=== PATIENT | female | born 1980 | race Caucasian/White ===

== ENCOUNTER 2019-09-06 15:55 | Emergency (ER) | payer OTHER, SELFPAY ==
[2019-09-06 16:11] VITALS: BP 153/97; PULSE 104; RESP 20; TEMP 37.2; O2SAT 98; BMI 44.9
--- NOTE | 2019-09-06 16:11 | ED_ITS ---
Entered by Nitza Aleman, acting as scribe for oJsie Casiano HPI - Female Genitourinary General: Chief complaint: Vaginal Bleeding Stated complaint: bleeding 10wks preg Time Seen by Provider: 09/06/19 16:06 Source: patient Mode of arrival: wheelchair Limitations: no limitations History of Present Illness: HPI Narrative: 38 yo Female presents to ED with complaint of vaginal bleeding. Pt states she is 10 weeks . Pt states that this is her 6th . Pt states she has 5 healthy children. Pt states that she had some spotting that started on Friday. Pt states that today she was spotting as well but it was just when she went to the bathroom. Pt states that she is having cramping but she has had period cramps worse. Pt states that she had an ultrasound in the ED recently that confirmed her and gave an estimated due date of April 10. Pt states that today when she got home, she got out of the car and felt a gush of blood. Pt states that she had another gush of blood when she arrived to the ED. MD elicited complaint: vaginal bleeding Onset (ago): day(s) (2) Severity scale (1-10): 4 Quality of pain: cramping Consistency: progressively worsening Vaginal discharge: none Vaginal bleeding: moderate Exacerbating factors: none Relieving factors: none Associated symptoms: Reports abdominal pain and vaginal bleeding; Deny headache(s) or syncope Patient : Yes Related Data: : 6 Para: 5 Review of Systems General: Reports: other (negative unless marked) Const: Denies: fever, chills, body aches, fatigue, malaise or diaphoresis Eyes: Denies: change in vision or blurry vision ENMT: Denies: throat pain, painful swallowing, hoarseness, ear pain, ear discharge, Change in hearing or nasal discharge Card: Denies: chest pain, palpitations, irregular heart rhythm, syncope, pre- syncope, shortness of breath on exertion or shortness of breath when lying down Resp: Denies: shortness of breath, productive cough, non-productive cough, wheezing, coughing up blood or chest congestion GI: Reports: abdominal pain : Reports: vaginal bleeding; Denies: flank pain, painful urination, urinary frequency, urinary urgency, decreased urine ouput, urinary incontinence or blood in urine Musc: Denies: neck pain, back pain, extremity pain, extremity swelling, joint pain, joint swelling, joint warmth or joint stiffness Skin/Breast: Denies: rash, skin tenderness or yellow skin Neuro: Denies: headache, numbness in extremities, weakness in extremities, changes in sensation, lack of coordination, difficulty walking, dizziness, vertigo or confusion Endo: Denies: excessive thirst, tired all the time, cold intolerance, excessive sweating, flushing or hot flashes Arnel/Lymph: Denies: easy bruising, easy bleeding, petechiae or enlarged lymph nodes All/Imm: Denies: hives, throat swelling, tongue swelling, facial swelling or acute wheezing PFSH ED PFSH: Statuses (acute, chronic, etc) shown below reflect problem list status as previously entered and may not be historically accurate Medical History (Updated 09/06/19 @ 19:27 by Josie Casiano) Depression (Acute) Diabetes (Acute) Social History (Updated 09/06/19 @ 16:32 by Nitza Aleman) Smoking and tobacco status: never smoked Female Reproductive History: : 6 Physical Exam Const: COMMON NORMALS: no apparent distress, oriented x3, no limitations, healthy appearing and well nourished EXAM LIMITATIONS: no altered mental status GENERAL APPEARANCE: cooperative, well kempt and well developed ORIENTATION/CONSCIOUSNESS: Yes awake HENMT: COMMON NORMALS: normocephalic, head/scalp atraumatic, hearing grossly normal bilaterally, external ears normal, EAC's normal, external nose normal and moist oral mucous membranes HEAD & SCALP: normal to inspection, normocephalic and atraumatic FACE & SINUS: normal facial exam and face symmetric NOSE: external nose normal and nares normal EXTERNAL EAR: Yes external ears normal EXTERNAL AUDITORY CANAL: EAC's normal MOUTH: oral and palatal mucosa normal and tongue normal Eye: COMMON NORMALS: PERRL, EOMs intact bilaterally, conjunctivae normal and no scleral icterus GENERAL EYE: normal appearance of both eyes and normal light reflex CONJUNCTIVA: Yes conjunctivae normal SCLERA: sclerae normal CORNEA: Yes corneas normal PUPIL: Yes PERRL DIRECT OPHTHALMOSCOPY: Yes normal light reflex Neck/C-Spine: COMMON NORMALS: full ROM, no lymphadenopathy, supple, no meninge al signs and no JVD GENERAL: Yes normal visual inspection and Yes trachea midline CERVICAL SPINE: Yes cervical ROM normal Chest: COMMONS NORMALS: inspection of chest normal and palpation of chest normal Resp: COMMON NORMALS: normal respiratory effort, no retractions, no use of accessory muscles and clear to auscultation bilaterally EFFORT & INSPECTION: Yes able to speak in complete sentences AUSCULTATION: clear to auscultation bilaterally Cardio: COMMON NORMALS: no JVD, regular rate, regular rhythm, S1 normal heart sound, S2 normal heart sound, no gallops, no clicks, no murmurs and no rub JUGULAR VENOUS DISTENTION: no JVD RATE: regular rate RHYTHM: regular rhythm HEART SOUNDS: S1 normal and S2 normal GI: COMMON NORMALS: soft to palpation, non-tender, no hepatosplenomegaly and no masses INSPECTION: Yes normal to inspection PALPATION: Yes soft and Yes no hepatosplenomegaly : COMMON NORMALS: Yes no CVA tenderness BLADDER/KIDNEY EXAM: Yes no CVA tenderness SPECULUM EXAM - VAGINA: Yes vaginal bleeding and Yes tissue present in vagina SPECULUM EXAM - CERVIX: Yes cervical os open, Yes tissue present in the cervical os and Yes cervical bleeding BIMANUAL EXAM - VAGINA & UTERUS: Yes normal vaginal palpation and Yes cervical motion tenderness BIMANUAL EXAM - ADNEXA, OTHER: Yes normal adnexae and Yes other (Tissue removed from the office with ringed forceps) OB/EXTERNAL & SPECULUM: tissue present in vagina, cervical os open and vaginal bleeding Back/Pelvis: COMMON NORMALS: no CVA tenderness, thoracic and lumbar spine normal to inspection, no thoracic nor lumbar tenderness and thoraco-lumbar ROM normal Extremity: COMMON NORMALS: normal to inspection, full ROM, normal capillary refill, no joint enlargement, no clubbing, cyanosis or edema and no calf tenderness Neuro: COMMON NORMALS: oriented x3, CN's II-XII intact bilaterally, moves all extremities, no focal motor deficits and no sensory deficits noted MENINGEAL SIGNS: Yes no meningeal signs Psych: COMMON NORMALS: mental status grossly normal, thought process normal, cooperative, affect normal, speech normal and activity/motor behavior normal APPEARANCE: Yes well kempt SPEECH: Yes normal speech THOUGHT PROCESS: normal thought process Skin: COMMON NORMALS: no rashes or lesions noted, skin turgor normal, no jaundice, no petechiae and no mottling GENERAL SKIN EXAM: no rashes or lesions noted and turgor normal Course Vital Signs: Vital signs: Vital Signs Temperature 99.0 F 09/06/19 16:11 Pulse Rate 110 H 09/06/19 20:35 Respiratory Rate 16 09/06/19 20:35 Blood Pressure 146/96 09/06/19 20:35 Pulse Oximetry 96 09/06/19 20:35 MDM - Female MDM Narrative: Medical decision making narrative: On pelvic exam the patient had tissue in the cervical loss. It was removed with a tenaculum. The bleeding improved greatly. I reviewed the case in full with Dr. Zafar waste transportation technician for [employer] and he states the patient will likely have improved pain and then as well will have less bleeding. He agrees to see the patient in his office for recheck. I reviewed this with the patient she is in agreement. She will follow-up as directed return here if needed. Lab Data: Attestation: I reviewed the patient's lab results. Labs: Lab Results 09/06/19 09/06/19 09/06/19 Range/Units 16:37 16:37 16:37 WBC 10.2 H (4.0-10.0) 10^3/ uL RBC 4.42 (4.1-5.3) 10^6/u L Hgb 13.3 (11.5-15.3) g/dL Hct 40.1 (37.0-47.0) % MCV 90.7 (81-99) fL MCH 30.1 (28.0-34.0) pg MCHC 33.2 (30.0-36.0) g/dL RDW 13.2 (12.1-15.1) % Plt Count 242 (130-400) 10^3/c mm MPV 10.4 (7.4-10.4) fL Neut % (Auto) 69.9 % Lymph % (Auto) 21.6 % [place] % (Auto) 6.7 % Eos % (Auto) 1.2 % Baso % (Auto) 0.3 % Neut # (Auto) 7.1 (1.8-7.7) 10^3/u L Lymph # (Auto) 2.2 (0.8-4.8) 10^3/u L [place] # (Auto) 0.7 (0.2-0.9) 10^3/u L Eos # (Auto) 0.1 (0.0-0.8) 10^3/u L Baso # (Auto) 0.0 (0.0-0.1) 10^3/u L Nucleated RBC % (a uto) 0 % Nucleated RBCs # 0.0 /100WBC Sodium 137 (136-145) mmol/L Potassium 3.5 (3.5-5.1) mmol/L Chloride 103 (98-107) mmol/L Carbon Dioxide 23 (22-29) mmol/L Anion Gap 14.5 (5-19) BUN 10 (6-20) mg/dL Creatinine 0.6 (0.5-0.9) mg/dL GFR Calculation 111.9 (90-130) mL/min Glucose 97 (74-109) mg/dL Calcium 9.5 (8.6-10.0) mg/Dl Total Bilirubin 0.4 (0.15-1.2) mg/dL AST 17 (0-32) U/L ALT 21 (0-33) U/L Alkaline Phosphata se 83 (35-105) IU/L Total Protein 7.2 (6.6-8.7) g/dL Albumin 4.1 (3.5-5.2) g/dL Globulin 3.1 (1.3-4.6) g/dL Ser , Darío i-Qnt 5844.00 mIU/mL Blood Type A Positive Imaging Data: US OB: Radiologist's impression: [address] [address] Ultrasound Report Signed Patient: Kathleen Holman#: [id number] : 1980Acct:[id number] Age/Sex: 38 / FADM Date: 09/06/19 Loc: ER Attending Dr: Ordering Physician: Josie Casiano DO Date of Service: 09/06/19 Procedure(s): US OB lmt with transvaginal Accession Number(s): [id number] cc: Josie Casiano DO~ PROCEDURE INFORMATION: Exam: US , Limited Exam date and time: 09/06/2019 4:58 PM Age: 38 years old Clinical indication: Lmp or gestational age (in weeks): 9 weeks 5 days; Other: Bleeding 9 weeks ; Patient HX: Hcg on 08/15/19 62098. Hcg today 09/06/2019 5844; Additional info: Pain TECHNIQUE: Imaging protocol: Real-time ultrasound of the maternal uterus with image documentation. Exam focused on the clinical indication. COMPARISON: [place] [id number] 06/03/2017 11:11 AM FINDINGS: GESTATION: Gestation: No IUP is identified. MATERNAL: Cervix: There is an echogenic area within the cervix measuring approximately 2.8 x 1.5 x 1.6 cm most likely representing some blood in the cervical canal. Right adnexa: Right ovary: Not visualized Left adnexa: Left ovary: Unremarkable US/US OB lmt with transvaginal IMPRESSION: No IUP is identified. Correlation with quantitative beta HCG is suggested. Dictated By: Dario Ramirez 09/06/191839 Signed By: Dario Ramirez 09/06/191841 Discharge Plan Discharge Patient Disposition: Home, Self-Care Clinical Impression: Incomplete Condition: Stable Prescriptions: [place] 5-325 mg tablet 1 tab PO Q6H PRN (Reason: pain) Qty: 10 RF: 0 ibuprofen 800 mg tablet 800 mg PO Q8H PRN (Reason: pain) Qty: 20 RF: 0 Zofran 4 mg tablet 4 mg PO Q6H PRN (Reason: nausea and vomiting) Qty: 20 RF: 0 No Action Levemir U-100 Insulin 100 unit/mL Solution 20 unit SUBCUT BID RF: 0 400 mcg Tablet,Chewable 400 mcg PO RF: 0 albuterol sulfate 90 mcg/actuation Hfa Aerosol Inhaler 1 inh INHALATION QID PRN (Reason: Shortness Of Breath) RF: 0 Flonase Allergy Relief 50 mcg/actuation [place],Suspension 1 spray INTRANASAL DAILY RF: 0 Discharge Orders: Discharge Order (Routine); Ordered 09/06/19 Ordered By: Josie Casiano Referrals: Lobo Zafar MD [Physician] - 1-3 days Dina Deluca MD [Primary Care Provider] - Discharge Diet: Advance as tolerated Discharge Activity: Increase activity as tolerated Patient Instructions: Spontaneous Miscarriage (ED) Activity Restrictions/Additional Instructions: Please return to the ER immediately for any of the signs or symptoms listed on your discharge instruction sheets, worsening/changing of your symptoms, you are not getting better as quickly as expected, or for ANY other cause or concerns. Be certain to follow-up with Dr. Zafar or with Dr. Deluca this week for recheck. Return to the ER for heavier bleeding, dizziness, lightheadedness, fever, or for any other cause for concern. Discharge Date/Time: 09/06/19 20:36 Coding Level of Care Code ED Tire Builder for Chg Fwd Exam Problem Focused The documentation recorded by the Love clemons Carmen, accurately reflects the service I personally performed and the decisions made by Stephenie joseph Eli N Sep 06, 2019 15:55
[2019-09-06 16:57] LABS: Basophils % 0.3 %; Eosinophils # 0.1 10^3/uL (0.0-0.8); Eosinophils % 1.2 %; Hematocrit 40.1 % (37.0-47.0); Hemoglobin 13.3 g/dL (11.5-15.3); Lymphocytes # 2.2 10^3/uL (0.8-4.8); Lymphocytes % 21.6 %; Mean Corpuscular HGB Conc 33.2 g/dL (30.0-36.0); Mean Corpuscular Hemoglobin 30.1 pg (28.0-34.0); Mean Corpuscular Volume 90.7 fL (81-99); Mean Platelet Volume 10.4 fL (7.4-10.4); Monocytes # 0.7 10^3/uL (0.2-0.9); Monocytes % 6.7 %; Neutrophils # 7.1 10^3/uL (1.8-7.7); Neutrophils % 69.9 %; Nucleated Red Blood Cells % 0 %; Platelet Count 242 10^3/cmm (130-400); Red Blood Count 4.42 10^6/uL (4.1-5.3); Red Cell Distribution Width 13.2 % (12.1-15.1); White Blood Count 10.2 10^3/uL (4.0-10.0)
[2019-09-06 17:16] LABS: Alanine Aminotransferase 21 U/L (0-33); Albumin Level 4.1 g/dL (3.5-5.2); Alkaline Phosphatase 83 IU/L (35-105); Anion Gap 14.5 (5-19); Aspartate Amino Transferase 17 U/L (0-32); Blood Urea Nitrogen 10 mg/dL (6-20); Calcium 9.5 mg/Dl (8.6-10.0); Carbon Dioxide 23 mmol/L (22-29); Chloride 103 mmol/L (98-107); Globulin 3.1 g/dL (1.3-4.6); Glomerular Filtration Rate 111.9 mL/min (90-130); Glucose 97 mg/dL (74-109); Potassium 3.5 mmol/L (3.5-5.1); Sodium 137 mmol/L (136-145); Total Bilirubin 0.4 mg/dL (0.15-1.2); Total Protein 7.2 g/dL (6.6-8.7)
[2019-09-06 20:09] VITALS: RESP 20
[2019-09-06] MEDS: morphine 4 mg/mL SDV 1 mL IVP (20:09)
[2019-09-06] MEDS: LORazepam 2 mg/mL INJ 1 mL 1 MG IVP (20:09)
[2019-09-06] MEDS: ondansetron 2 mg/ML SDV 2 mL 4 MG IVP (20:09)
[2019-09-06] MEDS: ketorolac 30 mg/mL INJ IVP (20:10)
[2019-09-06 20:35] VITALS: BP 146/96; PULSE 110; RESP 16; O2SAT 96
--- NOTE | 2019-09-08 12:01 | DCPLANNER ---
manager of training had message to schedule a follow up appointment for patient with either [facility] or Dr. Deluca. manager of training spoke with patient, patient stated that she would see Dr. Deluca for follow up appointment. Patient stated that she would make the appointment.
== END 2019-09-06 20:36 | disposition home or self-care (01) ==
PROVIDERS: Emergency Provider Emergency Medicine; Family Provider Family Medicine; PCP Family Medicine
DX: O03.4 Incomplete spontaneous abortion without complication (principal); O24.911 Unspecified diabetes mellitus in pregnancy, first trimester; Z3A.10 10 weeks gestation of pregnancy
CPT/HCPCS: 36415; 76815; 76817; 80053; 84702; 85025; 86900; 96374; 96375; 99281; 99283; J1885; J2060; J2270; J2405

== ENCOUNTER 2020-01-30 10:34 | Outpatient (CLI) | payer OTHER, SELFPAY ==
[2020-01-30 12:36] LABS: Total Protein 24 Hour Urine 82.7 mg/24HR (0-150); Total Volume, Urine 1560 mL; Urine Total Protein 24 Hour 5.3 mg/dL (0-150)
== END 2020-01-30 10:35 | disposition home or self-care (01) ==
LOC: LAB 10:37
PROVIDERS: Family Provider Family Medicine; PCP Family Medicine; Visit Provider Family Medicine
DX: O09.90 Supervision of high risk pregnancy, unspecified, unspecified trimester (principal); I10 Essential (primary) hypertension
CPT/HCPCS: 84156

== ENCOUNTER → 2020-02-10 10:18 | Outpatient (BNVA) | payer OTHER, MEDICAID, SELFPAY | PROVIDERS: Family Provider Family Medicine; PCP Family Medicine; Visit Provider Obstetrics & Gynecology | DX: O09.899 Supervision of other high risk pregnancies, unspecified trimester (principal) | CPT/HCPCS: 80307; 84315; 86803 ==

== ENCOUNTER → 2020-02-15 10:53 | Outpatient (BNVA) | payer OTHER, MEDICAID, SELFPAY | PROVIDERS: Family Provider Family Medicine; PCP Family Medicine; Visit Provider Obstetrics & Gynecology | DX: Z36.89 Encounter for other specified antenatal screening (principal) | CPT/HCPCS: 76817 ==

== ENCOUNTER → 2020-03-17 08:45 | Outpatient (BNVA) | payer OTHER, MEDICAID, SELFPAY | PROVIDERS: Family Provider Family Medicine; PCP Family Medicine; Visit Provider Obstetrics & Gynecology | DX: E11.9 Type 2 diabetes mellitus without complications (principal); O99.119 Other diseases of the blood and blood-forming organs and certain disorders involving the immune mechanism complicating pregnancy, unspecified trimester; D69.6 Thrombocytopenia, unspecified; O99.211 Obesity complicating pregnancy, first trimester; Z3A.12 12 weeks gestation of pregnancy | CPT/HCPCS: 76801 ==

== ENCOUNTER → 2020-04-17 10:34 | Outpatient (BNVA) | payer OTHER, MEDICAID, SELFPAY | PROVIDERS: Family Provider Family Medicine; PCP Family Medicine; Visit Provider Obstetrics & Gynecology | DX: O24.112 Pre-existing type 2 diabetes mellitus, in pregnancy, second trimester (principal) | CPT/HCPCS: 83036; 84315 ==

== ENCOUNTER 2020-06-03 17:45 | Outpatient (CLI) | payer OTHER, MEDICAID, SELFPAY ==
[2020-06-03 18:06] VITALS: BMI 44.9
[2020-06-03 18:07] VITALS: TEMP 36.7
[2020-06-03 18:15] VITALS: BP 0/0; BP 133/72; PULSE 92
== END 2020-06-03 18:38 | disposition home or self-care (01) ==
LOC: OPOB 17:48 → OBGYN 17:51
PROVIDERS: Family Provider Family Medicine; PCP Family Medicine; Visit Provider Obstetrics & Gynecology
DX: O26.899 Other specified pregnancy related conditions, unspecified trimester (principal); Z3A.00 Weeks of gestation of pregnancy not specified; N89.8 Other specified noninflammatory disorders of vagina; R10.2 Pelvic and perineal pain
CPT/HCPCS: 99211

== ENCOUNTER → 2020-07-07 10:25 | Outpatient (BNVA) | payer OTHER, MEDICAID, SELFPAY | PROVIDERS: Family Provider Family Medicine; PCP Family Medicine; Visit Provider Obstetrics & Gynecology | DX: O10.912 Unspecified pre-existing hypertension complicating pregnancy, second trimester (principal); Z3A.24 24 weeks gestation of pregnancy; O24.912 Unspecified diabetes mellitus in pregnancy, second trimester; O99.112 Other diseases of the blood and blood-forming organs and certain disorders involving the immune mechanism complicating pregnancy, second trimester; D69.6 Thrombocytopenia, unspecified | CPT/HCPCS: 84315; 85027 ==

== ENCOUNTER → 2020-08-10 10:40 | Outpatient (BNVA) | payer OTHER, MEDICAID, SELFPAY | PROVIDERS: Family Provider Family Medicine; PCP Family Medicine; Visit Provider Obstetrics & Gynecology | DX: O10.913 Unspecified pre-existing hypertension complicating pregnancy, third trimester (principal) | CPT/HCPCS: 84156 ==

== ENCOUNTER 2020-08-11 15:30 | Outpatient (CLI) | payer OTHER, MEDICAID, SELFPAY ==
[2020-08-11 16:13] VITALS: BP 124/74; PULSE 80
[2020-09-08 13:50] VITALS: BMI 48.0
== END 2020-08-11 16:30 | disposition home or self-care (01) ==
LOC: OPOB 15:42 → OBGYN 15:45
PROVIDERS: Family Provider Family Medicine; PCP Family Medicine; Visit Provider Obstetrics & Gynecology
DX: O24.419 Gestational diabetes mellitus in pregnancy, unspecified control (principal); O16.9 Unspecified maternal hypertension, unspecified trimester; Z3A.00 Weeks of gestation of pregnancy not specified
CPT/HCPCS: 59025; 99211

== ENCOUNTER 2020-08-11 15:30 | Outpatient (CLI) | payer OTHER, MEDICAID, SELFPAY ==
[2020-08-11 16:02] VITALS: BMI 48.0
[2020-08-11 16:06] VITALS: TEMP 36.7
[2020-08-11 16:35] VITALS: BP 124/74; RESP 18; TEMP 36.7
[2020-08-18 14:03] VITALS: BP 143/85; PULSE 92
[2020-08-18 14:24] VITALS: BP 137/84; PULSE 85
[2020-08-18 14:44] VITALS: BP 125/95; PULSE 90
== END 2020-08-11 16:30 | disposition home or self-care (01) ==
LOC: OPOB 15:40
PROVIDERS: Family Provider Family Medicine; PCP Family Medicine; Visit Provider Obstetrics & Gynecology
DX: O24.419 Gestational diabetes mellitus in pregnancy, unspecified control (principal); Z3A.00 Weeks of gestation of pregnancy not specified
CPT/HCPCS: 59025; 99211

== ENCOUNTER → 2020-08-14 08:01 | Outpatient (BNVA) | payer OTHER, MEDICAID, SELFPAY | PROVIDERS: Family Provider Family Medicine; PCP Family Medicine; Visit Provider Obstetrics & Gynecology | DX: O24.113 Pre-existing type 2 diabetes mellitus, in pregnancy, third trimester (principal); Z3A.24 24 weeks gestation of pregnancy; O10.913 Unspecified pre-existing hypertension complicating pregnancy, third trimester; O36.63X0 Maternal care for excessive fetal growth, third trimester, not applicable or unspecified; O99.119 Other diseases of the blood and blood-forming organs and certain disorders involving the immune mechanism complicating pregnancy, unspecified trimester; D69.6 Thrombocytopenia, unspecified | CPT/HCPCS: 81000 ==

== ENCOUNTER 2020-08-18 13:47 | Outpatient (CLI) | payer OTHER, MEDICAID, SELFPAY ==
[2020-08-18 14:00] VITALS: RESP 20; TEMP 36.5
[2020-08-18 14:11] VITALS: BMI 47.5
--- NOTE | 2020-08-18 14:55 | PC.NURSE ---
THIS COCOA POWDER MIXER OPERATOR STOOD IN ROOM AND PHYSICALLY HELD MONITOR ON BABY BECAUSE BABY WAS VERY ACTIVE.
[2020-08-18 14:56] VITALS: BP 125/95; PULSE 64; RESP 20; TEMP 36.5
== END 2020-08-18 14:55 | disposition home or self-care (01) ==
LOC: OPOB 13:59 → OBGYN 13:59
PROVIDERS: Family Provider Family Medicine; PCP Family Medicine; Visit Provider Obstetrics & Gynecology
DX: O24.419 Gestational diabetes mellitus in pregnancy, unspecified control (principal); O16.9 Unspecified maternal hypertension, unspecified trimester; Z3A.00 Weeks of gestation of pregnancy not specified
CPT/HCPCS: 59025; 99211

== ENCOUNTER 2020-08-24 13:07 | Outpatient (CLI) | payer OTHER, MEDICAID, SELFPAY ==
[2020-08-24 13:17] VITALS: BP 124/76; PULSE 85; RESP 16; TEMP 36.5
[2020-08-24 13:23] VITALS: BMI 48.2
[2020-08-24 13:35] VITALS: BP 135/85; PULSE 91
--- NOTE | 2020-08-24 13:37 | P.PCN_ITS ---
Procedure/Consent Procedure Narrative: NONSTRESS TEST: Place of test: [facility] [place]-L&D Indication: 39-year-old 7 para 5-0-1-5, diabetes, chronic hypertension, advanced maternal age at 34 weeks gestation Date and time of test: 08/24/2028, 1:30 PM Baseline: 135 Variability: Moderate Accelerations: Present Decelerations: None Tocometry: No contractions INTERPRETATION: NST reactive, continue kick counts
--- NOTE | 2020-08-24 13:43 | US_ITS ---
WS: [id number] BIOPHYSICAL PROFILE HISTORY: Diabetes, chronic hypertension COMPARISON: 08/20/2020 Cardiac activity: 157 bpm. Cervix: closed. Placenta: Posterior and fundal. Placenta grade: 2 Parameters are as follows: Breathin Movement: 2 Tone: 2 Fluid volume: 2 Largest vertical pocket of amniotic fluid is 7.1 cm. US/US OB BPP wo NST 21113 IMPRESSION: 1. Biophysical profile score: 8/8. 2. Normal amniotic fluid.
[2020-08-24 13:50] VITALS: BP 130/75; PULSE 87
[2020-08-24 14:34] VITALS: BP 130/75; PULSE 87
== END 2020-08-24 14:17 | disposition home or self-care (01) ==
LOC: OPOB 13:14 → OBGYN 13:14
PROVIDERS: Family Provider Family Medicine; PCP Family Medicine; Visit Provider Obstetrics & Gynecology
DX: O24.419 Gestational diabetes mellitus in pregnancy, unspecified control (principal); Z3A.34 34 weeks gestation of pregnancy; O16.3 Unspecified maternal hypertension, third trimester
CPT/HCPCS: 12345; 59025; 76819

== ENCOUNTER 2020-08-28 14:52 | Outpatient (CLI) | payer OTHER, MEDICAID, SELFPAY ==
[2020-08-28] VITALS (22 sets, daily range): BP systolic 139–181; BP diastolic 69–111; PULSE 76–93; RESP 18; TEMP 36.3; BMI 48.2
--- NOTE | 2020-08-28 15:00 | PM.ACPR ---
NST (Non-Stress Test) NST : 7 Para: 5,015 Due date: 09/29/20 Gestational age (weeks): 35 Indications: Pre-existing hypertension in in third trimester, Type 2 Diabetes in in third trimester Test: NST Time: 15:05 Length of test in Minutes: 41 Contractions: Occasional Fetus Fetus 1: Baseline FHR BMP:: 130 Variability: Moderate Accelerations: Present Decelerations: None Reacticity: Reactive Interpretation/Plan Interpretation by: Ramesh Castro Comments: Reactive NST with occasional contractions. Time Out Is a Time Out required?: No
--- NOTE | 2020-08-28 15:08 | US_ITS ---
WS: [id number] ULTRASOUND OB LIMITED TECHNIQUE: Limited ultrasound examination of the fetus. CLINICAL INFORMATION: hypertension, DM COMPARISON: August 24, 2020 FINDINGS: Cervix measures 6.1 cm Single interuterine gestation. presentation is vertex Placental location is posterior fundal. Placenta grade: 2 heart rate 129 BPM. Normal ALEXIS Biophysical profile 8 out of 8. breathin movement: 2 tone: 2 Amniotic fluid: 2 Impression Normal biophysical profile 8 out of 8
[2020-08-28] MEDS: hyDRALAzine 10 mg Tablet PO (18:10)
[2020-08-28 18:39] LABS: Urine Creatinine 29 mg/dL (28-217); Urine Protein Random 5 mg/dL
[2020-08-28 18:42] LABS: UPRO/UCREAT Ratio 0.17 mg/mg CR
--- NOTE | 2020-08-28 18:56 | PC.NURSE ---
monitor reading very elevated blood pressures, manual blood pressure readings significantly lower. report to dr echeverria, he also feels the monitor is not reading correctly. orders to d/c, pt to continue hydralazine as ordered and check b/p twice daily.
== END 2020-08-28 18:56 | disposition home or self-care (01) ==
LOC: OPOB 14:53 → OBGYN 15:06
PROVIDERS: Obstetrics & Gynecology; PCP Family Medicine; Visit Provider Obstetrics & Gynecology
DX: O24.419 Gestational diabetes mellitus in pregnancy, unspecified control (principal); Z3A.00 Weeks of gestation of pregnancy not specified; O16.9 Unspecified maternal hypertension, unspecified trimester
CPT/HCPCS: 12345; 59025; 76819; 82570; 84156; 84315; 99211

== ENCOUNTER 2020-09-01 11:05 | Outpatient (CLI) | payer OTHER, MEDICAID, SELFPAY ==
[2020-09-01 11:05] VITALS: BMI 48.7
[2020-09-01 11:16] VITALS: BP 143/89; PULSE 104
[2020-09-01 11:21] VITALS: RESP 17
[2020-09-01 11:23] VITALS: RESP 17
--- NOTE | 2020-09-01 11:33 | US_ITS ---
WS: [id number] Exam: US OB BPP wo NST 10236 Date/Time of Exam: 09/01/2020 11:47 AM Reason For Exam: NST, HTN, DM Viable intrauterine with single vertex fetus is noted. heart rate 1 50 bpm. Cervical length 4.58 cm. Biophysical profile score as follows: Amniotic fluid volume 2 tone 2 body movement 2 breathing movement 2 A total of 8/8 points US/US OB BPP wo NST 12100 IMPRESSION: Biophysical profile score of 8 of possible 8 points.
[2020-09-01 11:46] VITALS: BP 143/89; PULSE 96
[2020-09-01 11:52] VITALS: RESP 16; TEMP 36.7
== END 2020-09-01 12:07 | disposition home or self-care (01) ==
LOC: OPOB 11:12 → OBGYN 11:13
PROVIDERS: PCP Family Medicine; Visit Provider Obstetrics & Gynecology
DX: O24.419 Gestational diabetes mellitus in pregnancy, unspecified control (principal); Z3A.00 Weeks of gestation of pregnancy not specified; O16.9 Unspecified maternal hypertension, unspecified trimester
CPT/HCPCS: 59025; 76819; 99211

== ENCOUNTER 2020-09-04 13:16 | Outpatient (CLI) | payer OTHER, BC, SELFPAY ==
[2020-09-04] VITALS (7 sets, daily range): BP systolic 127–135; BP diastolic 75–91; PULSE 93–104; RESP 18; TEMP 36.2–36.7; BMI 48.7
--- NOTE | 2020-09-04 13:31 | US_ITS ---
WS: [id number] BIOPHYSICAL PROFILE HISTORY: Type II Diabetes, Chronic Hypertension COMPARISON: 09/01/2020 Cardiac activity: 138 bpm. Cervix: Poorly visualized. Placenta: Anterior and fundal. Placenta grade: 2 Parameters are as follows: Breathin Movement: 2 Tone: 2 Fluid volume: 2 Largest vertical pocket of amniotic fluid is 4.7 cm. US/US OB BPP wo NST [address]20 IMPRESSION: 1. Biophysical profile score: 6/8. 2. Normal amniotic fluid.
--- NOTE | 2020-09-04 14:47 | PM.ACPR ---
Procedure/Consent Procedure Narrative: NONSTRESS TEST: [place] [facility] [place] Indication: 39-year-old 7 para 5-0-1-5 at 36 weeks and 3 days, type II diabetic on insulin, chronic hypertension on medication. Date and time of test: 09/04/2020, 1:35 PM Baseline: 135 Variability: Moderate Accelerations: Present Decelerations: None Tocometry: No contractions INTERPRETATION: NST reactive-correlate with BPP, continue kick counts
== END 2020-09-04 14:50 | disposition home or self-care (01) ==
LOC: OPOB 13:17 → OBGYN 13:18
PROVIDERS: PCP Family Medicine; Visit Provider Obstetrics & Gynecology
DX: O24.419 Gestational diabetes mellitus in pregnancy, unspecified control (principal); O16.3 Unspecified maternal hypertension, third trimester; Z3A.36 36 weeks gestation of pregnancy
CPT/HCPCS: 12345; 59025; 76819; 87081; 99211

== ENCOUNTER 2020-09-08 19:14 | Inpatient (IN) | payer OTHER, BC, MEDICAID, SELFPAY ==
[2020-09-04 13:25] VITALS: TEMP 36.7
[2020-09-08] VITALS (25 sets, daily range): BP systolic 117–183; BP diastolic 68–119; PULSE 89–112; RESP 17; TEMP 36.8; O2SAT 96–100; BMI 49.2
[2020-09-08] MEDS: miSOPROStol 100 mcg tablet 25 MCG VAGINAL (20:35)
[2020-09-08 20:39] LABS: Basophils % 0.3 %; Eosinophils # 0.1 10^3/uL (0.0-0.8); Eosinophils % 0.8 %; Hematocrit 37.6 % (37.0-47.0); Hemoglobin 12.5 g/dL (11.5-15.3); Lymphocytes # 2.2 10^3/uL (0.8-4.8); Lymphocytes % 22.4 %; Mean Corpuscular HGB Conc 33.2 g/dL (30.0-36.0); Mean Corpuscular Hemoglobin 30.7 pg (28.0-34.0); Mean Corpuscular Volume 92.4 fL (81-99); Mean Platelet Volume 11.5 fL (7.4-10.4); Monocytes # 1.1 10^3/uL (0.2-0.9); Monocytes % 10.5 %; Neutrophils % 65.3 %; Nucleated Red Blood Cells % 0 %; Platelet Count 202 10^3/cmm (130-400); Red Blood Count 4.07 10^6/uL (4.1-5.3); Red Cell Distribution Width 14.2 % (12.1-15.1)
[2020-09-08 20:41] LABS: Amphetamines Screen Urine Negative (Negative); Barbiturates Screen Urine Negative (Negative); Benzodiazepines Screen Urine Negative (Negative); Cocaine Screen Urine Negative (Negative); Opiate Screen Urine Negative (Negative); PCP Screen Urine Negative (Negative); THC Screen Urine Negative (Negative)
[2020-09-08 20:56] LABS: Add Urine Microscopic? YES; Bilirubin Urine Neg (Negative); Blood Urine Neg (Negative); Glucose Urine UA Norm (Normal); Ketones Urine 1+ (Negative); Leukocyte Esterase Urine Negative (Negative); Nitrate Urine Negative (Negative); Protein Urine Neg (Negative); Specific Gravity, Urine 1.025 (1.005-1.030); Urine Color Yellow (Yellow); Urobilinogen Urine Norm (Negative); pH Urine 5 (5-7)
[2020-09-08 20:57] LABS: Add Urine Culture? No; Alanine Aminotransferase 11 U/L (0-33); Albumin Level 3.2 g/dL (3.5-5.2); Alkaline Phosphatase 84 IU/L (35-105); Anion Gap 13.9 (5-19); Aspartate Amino Transferase 15 U/L (0-32); Bacteria Urine 2+ /hpf; Blood Urea Nitrogen 14 mg/dL (6-20); Calcium 8.6 mg/dL (8.5-10.5); Carbon Dioxide 21 mmol/L (22-29); Chloride 105 mmol/L (98-107); Globulin 2.7 g/dL (1.3-4.6); Glomerular Filtration Rate 61.7 mL/min (90-130); Glucose 118 mg/dL (65-115); Osmolality Calculated 284 mOsm/kg (285-295); Potassium 3.9 mmol/L (3.5-5.1); RBC Urine 0-4 /hpf (0-2); Sodium 136 mmol/L (136-145); Squamous Epithelial Cell Urine >100 /hpf (0-5); Total Bilirubin 0.2 mg/dL (0.15-1.2); Total Protein 5.9 g/dL (6.6-8.7); Uric Acid 4.1 mg/dL (2.4-5.7); WBC Urine 0-4 /hpf (0-5)
[2020-09-08 21:18] LABS: Urine Creatinine 299 mg/dL (28-217); Urine Protein Random 20 mg/dL
[2020-09-08 21:19] LABS: UPRO/UCREAT Ratio 0.07 mg/mg CR
[2020-09-08] MEDS: labetalol 5 mg/mL SDV 20mL 20 MG IVP (23:08)
[2020-09-09] VITALS (111 sets, daily range): BP systolic 88–181; BP diastolic 49–115; PULSE 80–127; RESP 16–18; TEMP 36.2–36.6; O2SAT 92–99
[2020-09-09 01:04] LABS: Glucose Point of Care 95 mg/dL (70-110)
--- NOTE | 2020-09-09 02:03 | PC.NURSE ---
Patient informed of medications available for pain but denies wanting anything at this time and will inform nurse when medication is wanted.
[2020-09-09] MEDS: lactated ringers 500 ML IV (02:48)
[2020-09-09] MEDS: fentaNYL 50 mcg/mL INJ 2mL IV (02:48)
--- NOTE | 2020-09-09 03:45 | ANES.PREANE2 ---
Pre-Anesthetic Assessment Pre-Anesthetic Assessment: Height/Weight: Height 1.63 m Weight 130.181 kg Temp Pulse Resp BP Pulse Ox 97.2 F L 94 16 145/95 96 09/09/20 01:00 09/09/20 03:41 09/09/20 02:48 09/09/20 03:41 09/08/20 23:35 Preop Diagnosis: labor pains Proposed Procedure: epidural Was Beta Pia taken within 24 hours: Yes Social: Social History: No alcohol and No tobacco Exam: Pre-Anes Outpt Exam: alert, oriented x 3, clear to auscultation bilaterally and regular rate & rhythm Airway: Submandibular: WNL Cervical ROM: WNL MP: 2 Dentition: Full Pulmonary: Pulmonary: Asthma CV/HEM: CV/HEM: Anemia and HTN Comments: thrombocytopenia in early but resolved now : : None reported Hepatic: Hepatic: None reported GI: GI: GERD Metabolic: Metabolic: DM and Morbid obesity Musc/skel: Musc/skel: None reported Neuropsych: Neuropsych: Anxiety Anesthetic Plan: ASA status: 3 Anesthesia: Regional (specify below) Risk of > 500 ml blood loss (7ml/kg in children): No Meds/Allergies Current Medications: Current Medications Generic Name Dose Route Start Last Admin Trade Name Freq PRN Reason Stop Dose Admin Fentanyl 25 - 100 mcg 09/08/20 19:57 09/09/20 02:48 Fentanyl 50 Mcg/ Ml Inj 2ml IV 25 mcg Q1H PRN Administration SEVERE PAIN Lactated Ringer's 500 mls @ 500 mls /hr 09/09/20 02:27 09/09/20 03:23 Lactated Ringers IV 125 mls/hr .Q1H PRN Infusion see label comment s Labetalol HCl 20 mg 09/08/20 20:02 09/08/20 23:08 Labetalol 5 Mg/M l Sdv 20ml IVP 20 mg PRN PRN Administration HYPERTENSION Protocol Misoprostol 25 mcg 09/08/20 20:00 09/09/20 03:02 Misoprostol 100 Mcg Tablet VAGINAL 09/09/20 04:01 Not Given Q4H [facility] PFSH Anesthesia PFSH: Medical History Anxiety with depression Asthma Chronic hypertension Diabetes Hx of GDM; continued after 5th Surgical History No pertinent past surgical history Family History Mother Diabetes Hyperlipidemia Grandmother Hypertension Paternal garndmother Hyperlipidemia Maternal garndmother Breast cancer Paternal grandmother--dx around age 65 Father Hypertension Denies family history of Colon cancer Ovarian cancer Heart disease Family history of thyroid problem Uterine cancer Stroke Social History (Updated 09/05/20 @ 15:20 by Dana Farmer, RN) Smoking and tobacco status: never smoked Quit status (tobacco): has quit using tobacco Year quit tobacco: 2017 Alcohol intake: former Female Reproductive History: Date of last menstrual period: 06/23/19 : 7 Data Anesthesia CBC & Chem 7: 09/08/20 19:58 09/08/20 20:00 Other Labs: Laboratory Results - last 48 hr 09/08/20 09/08/20 09/08/20 19:58 20:00 20:00 WBC 10.0 RBC 4.07 L Hgb 12.5 Hct 37.6 MCV 92.4 MCH 30.7 MCHC 33.2 RDW 14.2 Plt Count 202 MPV 11.5 H Neut % (Auto) 65.3 Lymph % (Auto) 22.4 [place] % (Auto) 10.5 Eos % (Auto) 0.8 Baso % (Auto) 0.3 Neut # (Auto) 6.50 Lymph # (Auto) 2.2 [place] # (Auto) 1.1 H Eos # (Auto) 0.1 Baso # (Auto) 0.0 Nucleated RBC % (auto) 0 Nucleated RBCs # 0.0 Sodium Potassium Chloride Carbon Dioxide Anion Gap BUN Creatinine GFR Calculation Glucose POC Glucose Calculated Osmolality Uric Acid Calcium Total Bilirubin AST ALT Alkaline Phosphatase Total Protein Albumin Globulin Urine Color Yellow Urine Appearance Sl cloudy A Urine pH 5 Ur Specific [place] 1.025 Urine Protein Neg Urine Glucose (UA) Norm Urine Ketones 1+ H Urine Blood Neg Urine Nitrate Negative Urine Bilirubin Neg Urine Urobilinogen Norm Ur Leukocyte Esterase Negative Urine RBC 0-4 H Urine WBC 0-4 H Ur Squamous Epith Cells >100 H Amorphous Sediment Not Reportable Urine Bacteria 2+ H U Random Total Protein 20 Urine Creatinine 299 H Protein/Creatinin Ratio 0.07 Urine Opiates Screen Negative Ur Barbiturates Screen Negative Ur Phencyclidine Scrn Negative Ur Amphetamines Screen Negative U Benzodiazepines Scrn Negative Urine Cocaine Screen Negative U Marijuana (THC) Screen Negative 09/08/20 09/09/20 20:00 00:36 WBC RBC Hgb Hct MCV MCH MCHC RDW Plt Count MPV Neut % (Auto) Lymph % (Auto) [place] % (Auto) Eos % (Auto) Baso % (Auto) Neut # (Auto) Lymph # (Auto) [place] # (Auto) Eos # (Auto) Baso # (Auto) Nucleated RBC % (auto) Nucleated RBCs # Sodium 136 Potassium 3.9 Chloride 105 Carbon Dioxide 21 L Anion Gap 13.9 BUN 14 Creatinine 1.0 H GFR Calculation 61.7 L Glucose 118 H POC Glucose 95 Calculated Osmolality 284 L Uric Acid 4.1 Calcium 8.6 Total Bilirubin 0.2 AST 15 ALT 11 Alkaline Phosphatase 84 Total Protein 5.9 L Albumin 3.2 L Globulin 2.7 Urine Color Urine Appearance Urine pH Ur Specific [place] Urine Protein Urine Glucose (UA) Urine Ketones Urine Blood Urine Nitrate Urine Bilirubin Urine Urobilinogen Ur Leukocyte Esterase Urine RBC Urine WBC Ur Squamous Epith Cells Amorphous Sediment Urine Bacteria U Random Total Protein Urine Creatinine Protein/Creatinin Ratio Urine Opiates Screen Ur Barbiturates Screen Ur Phencyclidine Scrn Ur Amphetamines Screen U Benzodiazepines Scrn Urine Cocaine Screen U Marijuana (THC) Screen Cardiac Studies: No Data to Display
--- NOTE | 2020-09-09 04:34 | ANES.PROC ---
Anesthesia Procedures Procedure/Date: 09/09/20 epidural Procedure Narrative: epidural complete, bolus given, epidural pump initiated with [employer] education given, vitals taken during procedure using OBIX system and satisfactory throughout, patient admits to decrease pain, report of procedure to OB RN Epidural: Time Out Performed: Yes Consents Signed: Procedure Consent Consent: requested by attending/covering physician, from patient, risks and benefits reviewed and patient agrees to proceed Lumbar Level: L3-L4 Epidural position: sitting Epidural procedure: sterile prep of area, 1% lidocaine to numb the area (3 mL), 18 g needle, negative for paresthesia passed, neg for paresthesia, test dose given, 1.5% xylocaine 1:200k epi (5 mL), 0.2% Ropivacaine bolus ml (5 mL), placed PCEA, no systemic response, sterile dressing applied, L.U.D. no apparent complications and 0.2% Ropiavacaine @ mls/hr (13 mL/hr)
[2020-09-09 04:38] LABS: Glucose Point of Care 94 mg/dL (70-110)
[2020-09-09] MEDS: ePHEDrine 50 mg/mL Inj 10 MG IVP (05:01)
[2020-09-09] MEDS: ondansetron 2 mg/ML SDV 2 mL 4 MG IVP ×2 (05:05→09:49)
--- NOTE | 2020-09-09 05:07 | ANE.PACU2 ---
Inpatient post-anesthesia follow up: Airway intact: Yes Vital signs: Temperature 97.5 F Pulse Rate 121 Respiratory Rate 16 Blood Pressure 129/71 Pulse Oximetry 92 Oxygen Delivery Me thod Room Air Oxygen Flow Rate Fraction of Inspir ed Oxygen Hydration adequate: Yes Nausea and vomiting: Yes Pain level: 1 Mental status: Baseline Additional Comments: patient became nauseous and was noted that her Blood pressure had decreased post epidural placement. The pump rate was turned down to 10 ml/hr and ephedrine given. Patient BP improved. Will continue to monitor
[2020-09-09 09:06] LABS: Glucose Point of Care 105 mg/dL (70-110)
[2020-09-09] MEDS: lactated ringers 1,000 ML 125 ML IV (10:52)
[2020-09-09] MEDS: oxytocin 30 UNIT/500 ML BAG 600 UNIT IV (10:53)
--- NOTE | 2020-09-09 10:53 | PM.DELIVERY ---
Delivery Note: Date of delivery: September 09, 2020 Pre-delivery diagnoses: Term at 37 weeks. Pre-existing diabetes. Chronic hypertension. Obesity. Thrombocytopenia affecting . Suspected microsomia. Post-delivery diagnoses: Term delivered. Pre-existing diabetes. Chronic hypertension. Obesity. Procedure: A spontaneous vaginal delivery Op report anesthesia: Epidural Estimated blood loss (mL): 300 Findings: Female infant, Apgars 8/9, weight 3600 g, nuchal cord x1, no laceration. Pre-Delivery Course: The patient is a 39yo at 37 weeks EGA with a LMP of 12/24/2019 and an EDC of 09/29/2020 based on LMP and consistent with 7-week ultrasound who has been receiving care from [facility]. had been complicated by diabetes, chronic hypertension, obesity, thrombocytopenia and suspected macrosomia. Admitted to labor and delivery for induction. HPI: Received appropriate care with MFM consult. Daily vitamins since start of care. labs have all been normal, including negative for HIV. She was found to negative for Group B Strep from screening at 36 weeks. She has gained approximately 26 lbs throughout the . She denies a history of HTN during . Glucose tolerance screening for gestational diabetes was negative. Delivery: The patient was noted to be complete and pushing, so was placed in the dorsal lithotomy position, prepped and draped in the usual sterile fashion for a vaginal delivery. Pt. Noted to have epidural anesthesia. At 1037 the patient delivered a viable 37+1 weeks female fetus weighing 3600 g with scores of 8 and 9 at one and five minutes, respectively. The vertex was delivered spontaneously over an intact perineum. The patient was asked to push and the head delivered spontaneously in the CANDI position, over an intact perineum. A nuchal cord was checked and 1 noted, and delivered through around head as necessary. The anterior shoulder delivered easily and the posterior shoulder followed. The remainder of the was easily delivered and the oropharynx and nasopharynx was bulb suctioned. The was noted to have spontaneous cry and spontaneous movement of all four extremities. The cord was clamped x 2 and cut and noted to have 2 arteries and one vein. The infant was passed to the mother's abdomen where nursing personnel were in attendance. The placenta delivered intact spontaneously and the uterus was explored. 20 units of Pitocin was placed in the IV bag to firm the uterus. Examination of the cervix and vaginal vault did not reveal any lacerations. A vaginal pack was then placed. Examination of the perineum showed a lacerations. The vaginal pack was then removed. The patient tolerated this procedure well, and recovered in L&D with her [or note if infant taken to NICU]. All sponge and needle counts were correct. Post-Delivery Status: Good and hemodynamically stable A&P Assessment and plan (1) Term delivered: Status: Acute (2) macrosomia during in third trimester: Status: Acute Qualifiers: Fetus number: single or unspecified fetus Qualified Code(s): O36.63X0 - Maternal care for excessive growth, third trimester, not applicable or unspecified (3) Pre-existing diabetes mellitus affecting in third trimester, antepartum: Status: Acute (4) Multigravida of advanced maternal age: Status: Acute Qualifiers: Trimester: third trimester Qualified Code(s): O09.523 - Supervision of elderly multigravida, third trimester (5) Mental disorder affecting : Status: Acute Qualifiers: Trimester: third trimester Qualified Code(s): O99.343 - Other mental disorders complicating , third trimester (6) Asthma: Status: Acute Qualifiers: Asthma severity: mild (7) Diabetes in : Status: Acute Qualifiers: Diabetes in type: pre-existing, type 2 Trimester: third trimester Qualified Code(s): O24.113 - Pre-existing type 2 diabetes mellitus, in , third trimester (8) Thrombocytopenia affecting : Status: Acute (9) Pre-existing hypertension affecting : Status: Acute Qualifiers: Trimester: third trimester Qualified Code(s): O10.913 - Unspecified pre-existing hypertension complicating , third trimester Coding Level of Care Code Acute Automatic Coin Machine Mechanic for Chg Fwd Diagnoses Term delivered O80 macrosomia during in third trimester O36.63X0 Fetus number: single or unspecified fetus Pre-existing diabetes mellitus affecting in third trimester, antepartum O24.313 Multigravida of advanced maternal age O09.523 Trimester: third trimester Mental disorder affecting O99.343 Trimester: third trimester Asthma J45.909 Asthma severity: mild Diabetes in O24.113 Diabetes in type: pre-existing, type 2 Trimester: third trimester Thrombocytopenia affecting O99.119; D69.6 Pre-existing hypertension affecting O10.913 Trimester: third trimester
[2020-09-09 14:05] LABS: Glucose Point of Care 229 mg/dL (70-110)
[2020-09-09] MEDS: ibuprofen 800 mg tablet PO ×2 (14:27→21:05)
[2020-09-09] MEDS: docusate sodium 100 mg Capsule PO (18:59)
[2020-09-09 19:13] LABS: Glucose Point of Care 159 mg/dL (70-110)
[2020-09-09 21:20] LABS: Glucose Point of Care 125 mg/dL (70-110)
[2020-09-09 23:14] LABS: Hemoglobin 11.2 g/dL (11.5-15.3); Mean Corpuscular HGB Conc 32.9 g/dL (30.0-36.0); Mean Corpuscular Hemoglobin 30.6 pg (28.0-34.0); Mean Corpuscular Volume 92.9 fL (81-99); Mean Platelet Volume 11.4 fL (7.4-10.4); Platelet Count 175 10^3/cmm (130-400); Red Blood Count 3.66 10^6/uL (4.1-5.3); Red Cell Distribution Width 14.2 % (12.1-15.1); White Blood Count 13.4 10^3/uL (4.0-10.0)
[2020-09-10] VITALS (11 sets, daily range): BP systolic 126–142; BP diastolic 68–88; PULSE 81–95; RESP 16–18; TEMP 35.7–36.6
[2020-09-10] MEDS: HYDROcodone-acetaminophen 5-325 mg Tablet PO ×3 (02:07→14:04)
--- NOTE | 2020-09-10 08:28 | ANE.PACU2 ---
Inpatient post-anesthesia follow up: Airway intact: Yes Vital signs: Temperature 97.9 F Pulse Rate 81 Respiratory Rate 16 Blood Pressure 135/82 Pulse Oximetry 99 Oxygen Delivery Me thod Non-Rebreather Oxygen Flow Rate 10 Fraction of Inspir ed Oxygen Hydration adequate: Yes Nausea and vomiting: No Pain level: 3 Mental status: Baseline Additional Comments: No headaches, no numbness/parasthesia/weakness of lower extremities, no s/s of infection at neuraxial site, mod bruising, no difficulty urinating
[2020-09-10] MEDS: docusate sodium 100 mg Capsule PO (09:20)
[2020-09-10] MEDS: prenatal vitamin Capsule 1 CAP PO (09:20)
[2020-09-10] MEDS: ibuprofen 800 mg tablet PO ×2 (09:20→14:03)
[2020-09-10 09:31] LABS: Glucose Point of Care 133 mg/dL (70-110)
--- NOTE | 2020-09-10 12:30 | PM.OBGYDC ---
Discharge Providers BUDGET CLERK Date of Admission: 09/08/20 19:14 Date of Discharge: 09/10/20 Attending Provider at Admission: Lobo Zafar MD Attending Provider at Discharge: Lobo Zafar MD Primary Care Provider: Dina Deluca MD Diagnoses at Discharge Discharge Diagnosis (1) macrosomia during in third trimester: Status: Acute Qualifiers: Fetus number: single or unspecified fetus Qualified Code(s): O36.63X0 - Maternal care for excessive growth, third trimester, not applicable or unspecified (2) Pre-existing diabetes mellitus affecting in third trimester, antepartum: Status: Acute (3) Multigravida of advanced maternal age: Status: Acute Qualifiers: Trimester: third trimester Qualified Code(s): O09.523 - Supervision of elderly multigravida, third trimester (4) Mental disorder affecting : Status: Acute Qualifiers: Trimester: third trimester Qualified Code(s): O99.343 - Other mental disorders complicating , third trimester (5) Asthma: Status: Acute Qualifiers: Asthma severity: mild (6) Diabetes in : Status: Acute Qualifiers: Diabetes in type: pre-existing, type 2 Trimester: third trimester Qualified Code(s): O24.113 - Pre-existing type 2 diabetes mellitus, in , third trimester (7) Thrombocytopenia affecting : Status: Acute (8) Pre-existing hypertension affecting : Status: Acute Qualifiers: Trimester: third trimester Qualified Code(s): O10.913 - Unspecified pre-existing hypertension complicating , third trimester (9) Term delivered: Status: Acute Reason for Visit Reason for Visit: INDUCTION Hospital Course Hospital Course The patient is a 39yo at 37 weeks EGA with a LMP of 12/24/2019 and an EDC of 09/29/2020 based on LMP and consistent with 7-week ultrasound who has been receiving care from [facility]. had been complicated by diabetes, chronic hypertension, obesity, thrombocytopenia and suspected macrosomia. Admitted to labor and delivery for induction. HPI: Received appropriate care with MFM consult. Daily vitamins since start of care. labs have all been normal, including negative for HIV. She was found to negative for Group B Strep from screening at 36 weeks. She has gained approximately 26 lbs throughout the . She denies a history of HTN during . Glucose tolerance screening for gestational diabetes was negative. She progressed to a spontaneous vaginal delivery without complication, and deliver a baby girl Apgars 8/9 with a weight of 3600 g. observation was uneventful. She is afebrile hemodynamically stable. Tolerating diet well, ambulating without difficulty. Glucose under control, blood pressure under control. Information Peripartum Data: Infant Delivery Method: Vaginal Laceration description: None Episiotomy description: None complications: none Physical Exam Narrative: EXAM NARRATIVE: GA; alert and oriented x 3 HEENT: normal Breasts: engorged Nipples - skin intact Lungs; clear to auscultation Heart: regular rhythm, no murmurs. Abd: Appropriately tender. BS+. Uterine fundus below umbilicus. No Fundal Tenderness. Perineum: normal lochia. Extremities: no edema, no cyanosis, no tenderness. Urinary Catheter Management^: Gore Latex: Cath Placed During This Visit: yes, but has since been removed by the nurse Reason for Continuing Indwelling Catheter: Decision to DC Catheter Urinary Catheter Date of Insertion: 09/09/20 Urinary Catheter Time of Insertion: 05:53 Date Urinary Catheter Removed: 09/09/20 Time Urinary Catheter Discontinued: 10:30 Discharge Data Data Completed and Pending: Labs from last 24 hours 09/10/20 09/09/20 09/09/20 09:22 22:54 21:14 WBC 13.4 H RBC 3.66 L Hgb 11.2 L Hct 34.0 L MCV 92.9 MCH 30.6 MCHC 32.9 RDW 14.2 Plt Count 175 MPV 11.4 H POC Glucose 133 H 125 H 09/09/20 09/09/20 18:58 14:01 WBC RBC Hgb Hct MCV MCH MCHC RDW Plt Count MPV POC Glucose 159 H 229 H Vitals: Last Vital Signs Temp 97.5 F L 09/10/20 09:27 Pulse 90 09/10/20 09:27 Resp 18 09/10/20 09:33 BP 134/88 09/10/20 09:27 Pulse Ox 99 09/09/20 05:11 Discharge Plan Discharge Patient Disposition: Home Condition: Stable Prescriptions: New docusate sodium [Colace] 100 mg capsule 100 mg PO BID Qty: 60 RF: 0 acetaminophen 325 mg capsule 325 mg PO Q4H PRN (Reason: fever or pain) Qty: 60 RF: 0 ibuprofen 800 mg tablet 800 mg PO TID PRN (Reason: pain) Qty: 60 RF: 0 Continued aspirin 81 mg tablet,chewable 162 mg PO DAILY RF: 0 sertraline 25 mg tablet 25 mg PO DAILY RF: 0 iron ag,ia-F-[id number]-mf-wmu 150 mg iron- 60 mg-1 mg tablet 1 tab PO DAILY RF: 0 hydralazine 10 mg tablet 10 mg PO QID RF: 0 garlic 1,000 mg capsule 2,000 mg PO DAILY RF: 0 pyridoxine (vitamin B6) 50 mg capsule 50 mg PO DAILY RF: 0 prenat.vits,jennifer,coq-vmfl-xqgso Tablet 1 tab PO DAILY RF: 0 (DME) blood-glucose meter [Blood Glucose Monitoring] Kit See Rx Instructions .ROUTE .MEDSUPPLY Qty: 1 RF: 0 (DME) Accu-Chek Mona Plus test strp Strip See Rx Instructions .ROUTE .MEDSUPPLY Qty: 150 RF: 3 albuterol sulfate 90 mcg/actuation Hfa Aerosol Inhaler 1 inh INHALATION QID PRN (Reason: Shortness Of Breath) RF: 0 fluticasone propionate [Flonase Allergy Relief] 50 mcg/actuation [place],Suspension 1 spray INTRANASAL DAILY RF: 0 Levemir U-100 Insulin 100 unit/mL solution 15 unit SUBCUT .COMPLEX RF: 0 Discharge Orders: Discharge Order (Routine); Ordered 09/10/20 Ordered By: Lobo Zafar Referrals: Lobo Zaafr MD [Physician] - 2 weeks (Check BP and glucose) Discharge Diet: Usual diet, As Directed and Diabetic Discharge Activity: Increase activity as tolerated Patient Instructions: Diabetes Insipidus (GEN), Vaginal Delivery (DC), Chronic Hypertension (GEN) Activity Restrictions/Additional Instructions: 1. Please call [facility] on next working day to make your post-operative appointment in 2 weeks to monitor BP and glucose. 2. Please stay home until you come back to the clinic on first post-operative check up. 3. Please follow instructions on your medications CAREFULLY. 4. If you have abdominal incision, do not cover it unless dressing is necessary because of drainage. OK to shower, but avoid bath. Leave steri-strips until they fall off. If they are still on one week after surgery, you may remove them. 5. If you had vaginal surgery, your doctor may instruct you to take SITZ bath. 6. Yellow, blood tinged odorous vaginal discharge is usually normal after hysterectomy or vaginal surgeries. 7. No sexual intercourse, tampons, or douches until you are completely released from the post-operative care. 8. Avoid constipation by eating right and maybe using some Metamucil or Milk of Magnesia. 9. All prescription refills are given during the working hours. Please do no wait till it runs out. Call the clinic at [phone] before your medication runs out. The clinic will get in touch with your doctor to prescribe medications if necessary. 10. Please remain within 40 mile radius from our hospital because emergencies do happen now and then during the post-operative period. 11. If you have stairs at home, take one step at a time slowly and minimize the number of trips. It helps to stay in one floor for the next few days. No lifting except what you can lift by one hand until you are released from the post-operative care. 12. Driving is discouraged until you are well healed. It may be 3-4 weeks before you feel strong enough to drive. You should be able to turn and look through the rear window without pain and you should be able to push the brake pedal very hard without pain before you drive. No fast rules, but SAFETY should be your primary concern. DO NOT drive if you are on sedating medications such as narcotics. 13. Call the clinic (during working hours) to make urgent appointment or go to the Emergency room, if any of the following occurs: i. Vaginal bleeding becomes heavy, more than a period. ii. Incision becomes red and sore, or drains pus. iii. Your temperature is over 100.4 or you have chill. iv. IV site becomes red and swollen (a little ``knot?? is usually OK) v. Persistent nausea and vomiting vi. Persistent constipation or diarrhea vii. Rash or allergic reaction to medications. Discharge Attestations BUDGET CLERK Time Spent in Discharge Care*: greater than 30 min Coding Level of Care Code Acute Child Caregiver for Chg Fwd Diagnoses macrosomia during in third trimester O36.63X0 Fetus number: single or unspecified fetus Pre-existing diabetes mellitus affecting in third trimester, antepartum O24.313 Multigravida of advanced maternal age O09.523 Trimester: third trimester Mental disorder affecting O99.343 Trimester: third trimester Asthma J45.909 Asthma severity: mild Diabetes in O24.113 Diabetes in type: pre-existing, type 2 Trimester: third trimester Thrombocytopenia affecting O99.119; D69.6 Pre-existing hypertension affecting O10.913 Trimester: third trimester Term delivered O80
== END 2020-09-10 14:15 | disposition home or self-care (01) | DRG 806 ==
PROVIDERS: Admitting Provider Obstetrics & Gynecology; PCP Family Medicine; Visit Provider Obstetrics & Gynecology
DX: O24.12 Pre-existing type 2 diabetes mellitus, in childbirth (principal); O10.92 Unspecified pre-existing hypertension complicating childbirth; Z37.0 Single live birth; E11.9 Type 2 diabetes mellitus without complications; Z3A.37 37 weeks gestation of pregnancy; O36.63X0 Maternal care for excessive fetal growth, third trimester, not applicable or unspecified; Z79.82 Long term (current) use of aspirin; O99.214 Obesity complicating childbirth; O69.81X0 Labor and delivery complicated by cord around neck, without compression, not applicable or unspecified; O99.284 Endocrine, nutritional and metabolic diseases complicating childbirth; E03.9 Hypothyroidism, unspecified; O99.344 Other mental disorders complicating childbirth; F41.8 Other specified anxiety disorders
CPT/HCPCS: 12345; 36415; 36416; 51702; 59025; 59409; 80053; 80306; 81001; 82570; 82962; 84156; 84550; 85025; 85027; 96372; 96374; J1815; J2405; J2795; J3010; J3490

== ENCOUNTER → 2020-10-31 08:02 | Outpatient (BNVA) | payer OTHER, BC, MEDICAID, SELFPAY | PROVIDERS: PCP Family Medicine; Visit Provider Obstetrics & Gynecology | DX: Z86.32 Personal history of gestational diabetes (principal) | CPT/HCPCS: 81025; 82947 ==

== ENCOUNTER 2025-08-05 08:01 | Outpatient (CLI) | payer OTHER, BC, MEDICAID, SELFPAY ==
--- NOTE | 2025-08-05 08:13 | MM_ITS ---
WS: [id number] BILATERAL SCREENING DIGITAL TOMOSYNTHESIS MAMMOGRAM WITH CAD HISTORY: SCREENING COMPARISON: 10/26/2024 Bilateral CC and MLO views with tomosynthesis and synthetic mammography submitted. Computer aided detection analyzed. Breast composition: There are scattered areas of fibroglandular density. No suspicious masses, microcalcifications or architectural distortion. MM/MM scr BI tomosynthesis [id number] IMPRESSION: BI-RADS: 1 - Negative. FOLLOW UP: 1 Year Follow-up
--- NOTE | 2025-08-05 08:13 | US_ITS ---
WS: [id number] Complete ABDOMINAL ULTRASOUND HISTORY: LUQ ABDOMINAL PAIN COMPARISON: 03/19/2019 Liver: 14.6 cm in length. Normal size liver and echogenicity. No bile duct dilatation or mass. Portal Vein: Normal hepatopetal flow with monophasic waveform. Gallbladder: Normally distended gallbladder with no stones or wall thickening. CBD: 0.4 cm Pancreas: Normal size and echogenicity. Right kidney: 12.0 cm x 6.7 x 5.5 cm. Cortex:1.5 cm. Normal size and echogenicity. No hydronephrosis or mass. Left kidney: 11.5 cm x 5.6 cm x 6.5 cm. Cortex: 1.3 cm. Normal size and echogenicity. No hydronephrosis or mass. Spleen: 10.9 cm. Normal size and echogenicity. Aorta and IVC: Unremarkable abdominal aorta and IVC. US/US abdomen complete* [id number] Impression: Normal complete abdomen ultrasound.
== END 2025-08-05 08:02 | disposition home or self-care (01) ==
PROVIDERS: PCP Family Medicine; Visit Provider Nurse Practitioner Family
DX: Z12.31 Encounter for screening mammogram for malignant neoplasm of breast (principal); R92.323 Mammographic fibroglandular density, bilateral breasts; R10.12 Left upper quadrant pain
CPT/HCPCS: 76700; 77063; 77067